=== PATIENT | female | born 1965 | race Caucasian/White ===

== ENCOUNTER 2019-04-03 10:24 | Emergency (ER) | payer OTHER ==
[~2019-04-03] VITALS: Ht 161.3 cm; Wt 74.8 kg
--- NOTE | 2019-04-03 10:38 | NUR ---
AMB TO BED 04, URINE CUP PROVIDED
--- NOTE | 2019-04-03 11:30 | NUR ---
PATIENT PRESENTS TO ED WITH C/O ABDOMINAL PAIN X 5 DAYS. PT STATES THAT THIS PAIN COMES AND GOES, AND DESCRIBES IT 7/10 BURNING PAIN AGGRAVATED BY MOVEMENT AND STANDING. DENIES BOWEL AND URINARY PROBLEMS. PT ALSO COMPLAINS OF NAUSEA, DENIES V/D. PT WITH NON-PRODUCTIVE COUGH AND C/O . LUNGS CLEAR BL; HR EVEN AND REGULAR; VSS; PATIENT POSITIONED FOR COMFORT; HOB ELEVATED; BEDRAILS UP X2; BED DOWN. ER MD MADE AWARE OF PT STATUS. PMH: DM, HTN MEDS: LISINOPRIL, GLIPLIZIDE NKA
[2019-04-03 11:46] LABS: BASOPHILS % (AUTO) 0.5 % (0.0-2.0); EOSINOPHILS % (AUTO) 0.2 % (0.0-4.0); HEMOGLOBIN 12.8 g/dL (12.0-16.0); LYMPHOCYTES # (AUTO) 1.2 K/uL (2.5-16.5); LYMPHOCYTES % (AUTO) 37.7 % (20.5-51.1); MEAN CORPUSCULAR HEMOGLOBIN 31 pg (27-31); MEAN CORPUSCULAR HGB CONC 34 g/dL (33-37); MEAN CORPUSCULAR VOLUME 92.9 fL (80-94); MONOCYTES # (AUTO) 0.5 K/uL (0.8-1.0); MONOCYTES % (AUTO) 17.3 % (1.7-9.3); NEUTROPHILS # (AUTO) 1.4 K/uL (1.8-7.7); NEUTROPHILS % (AUTO) 44.3 % (42.2-75.2); PLATELET COUNT (AUTO) 216 K/uL (140-450); RED BLOOD CELL COUNT(AUTO) 4.09 MIL/uL (4.20-5.40); RED CELL DISTRIBUTION WIDTH 12.3 % (11.6-13.7); WHITE BLOOD COUNT (AUTO) 3.1 K/uL (4.8-10.8)
[2019-04-03 11:47] LABS: APPEARANCE,URINE CLEAR (CLEAR); BILIRUBIN,URINE NEGATIVE (NEGATIVE); BLOOD, URINE TRACE-I (NEGATIVE); COLOR,URINE YELLOW (YELLOW); LEUKOCYTE ESTERASE ,URINE TRACE (NEGATIVE); NITRITE, URINE NEGATIVE (NEGATIVE); PH,URINE 6.5 (5.0-9.0); UGLUCOSE 3+ (NEGATIVE)
[2019-04-03 11:55] LABS: ALBUMIN 2.4 g/dL (3.4-5.0); ANION GAP 9.7 (8-16); CARBON DIOXIDE 32.6 mmol/L (21-32); CREATININE 0.7 mg/dL (0.6-1.3); POTASSIUM 3.3 mmol/L (3.5-5.1); TOTAL BILIRUBIN 0.3 mg/dL (0.0-1.0)
[2019-04-03] MEDS ORDERED: INSULIN REGULAR, HUMAN 100 UNIT/ML VIAL SUBQ ONE (12:05)
[2019-04-03] MEDS ORDERED: NACL 0.9% 1,000 ML IV ONE (12:05)
[2019-04-03] MEDS ORDERED: POTASSIUM CHLORIDE 10 MEQ TABER PO ONE (12:05)
[2019-04-03] MEDS ORDERED: OSELTAMIVIR PHOSPHATE 75 MG CAP PO ONE (12:25)
--- NOTE | 2019-04-03 13:30 | NUR ---
ALL RESULTS BACK AND NOTED BY ERMD AND FOR D/C
[2019-04-03 13:38] LABS: RBC,URINE 0-5 /HPF (0-5); WBC,URINE 0-5 /HPF (0-5)
[2019-04-03 14:15] VITALS: BP 132/80
--- NOTE | 2019-04-03 14:15 | NUR ---
Patient discharged with v/s stable. Written and verbal after care instructions given and explained. Patient alert, oriented and verbalized understanding of instructions. Ambulatory with steady gait. All questions addressed prior to discharge. ID band removed. Patient advised to follow up with PMD. Rx of TAMIFLU 75 MG, IBUPROFEN 600MG given. Patient educated on indication of medication including possible reaction and side effects. Opportunity to ask questions provided and answered.
== END 2019-04-03 14:15 | disposition home or self-care (01) ==
LOC: MED 10:24
DX: J09.X2 Influenza due to identified novel influenza A virus with other respiratory manifestations (principal); E11.65 Type 2 diabetes mellitus with hyperglycemia; E87.6 Hypokalemia; R10.84 Generalized abdominal pain
CPT/HCPCS: 36415; 71046; 80053; 81001; 83690; 85025; 87804; 96360; 96372; 99284; J1815; J7030; 96361

== ENCOUNTER 2019-05-24 12:00 | Inpatient (IN) | payer OTHER ==
[~2019-05-24] VITALS: Ht 154.9 cm; Wt 71.7 kg
[2019-05-24 12:31] VITALS: BP 172/95
[2019-05-24 14:53] LABS: BASOPHILS % (AUTO) 0.2 % (0.0-2.0); EOSINOPHILS % (AUTO) 0.8 % (0.0-4.0); HEMATOCRIT 37.3 % (36-48); HEMOGLOBIN 12.9 g/dL (12.0-16.0); LYMPHOCYTES # (AUTO) 2.6 K/uL (2.5-16.5); LYMPHOCYTES % (AUTO) 43.6 % (20.5-51.1); MEAN CORPUSCULAR HEMOGLOBIN 32 pg (27-31); MEAN CORPUSCULAR HGB CONC 35 g/dL (33-37); MEAN CORPUSCULAR VOLUME 91.7 fL (80-94); MONOCYTES # (AUTO) 0.4 K/uL (0.8-1.0); MONOCYTES % (AUTO) 6.6 % (1.7-9.3); NEUTROPHILS # (AUTO) 2.9 K/uL (1.8-7.7); NEUTROPHILS % (AUTO) 48.8 % (42.2-75.2); PLATELET COUNT (AUTO) 290 K/uL (140-450); RED BLOOD CELL COUNT(AUTO) 4.07 MIL/uL (4.20-5.40)
[2019-05-24 15:02] LABS: BILIRUBIN,URINE NEGATIVE (NEGATIVE); BLOOD, URINE TRACE-L (NEGATIVE); COLOR,URINE YELLOW (YELLOW); LEUKOCYTE ESTERASE ,URINE 1+ (NEGATIVE); NITRITE, URINE NEGATIVE (NEGATIVE); PH,URINE 5.5 (5.0-9.0); UGLUCOSE 3+ (NEGATIVE)
[2019-05-24 15:06] LABS: APPEARANCE,URINE HAZY (CLEAR)
[2019-05-24 15:17] LABS: ANION GAP 11.1 (8-16); CARBON DIOXIDE 30.3 mmol/L (21-32); CREATININE 0.8 mg/dL (0.6-1.3); POTASSIUM 3.4 mmol/L (3.5-5.1)
[2019-05-24 15:18] LABS: RBC,URINE NONE SEEN /HPF (0-5)
[2019-05-24 15:24] LABS: ALBUMIN 3.4 g/dL (3.4-5.0); TOTAL BILIRUBIN 0.2 mg/dL (0.0-1.0)
[2019-05-24] MEDS ORDERED: PIPERACILLIN/TAZOBACTAM 3.375 GM in DEXTROSE 5% 50 ML IV ONE (15:25)
[2019-05-24] MEDS ORDERED: INSULIN REGULAR, HUMAN 100 UNIT/ML VIAL SUBQ ONE (15:25)
[2019-05-24] MEDS ORDERED: NACL 0.9% 1,000 ML IV ONE (15:25)
[2019-05-24] MEDS ORDERED: PIPERACILLIN/TAZOBACTAM 3.375 GM VIAL IV ONE (15:28)
[2019-05-24] MEDS ORDERED: CEPH250C16 PO (16:21)
[2019-05-24] MEDS ORDERED: METF1000 PO (16:21)
[2019-05-24] MEDS ORDERED: GLIP5TER PO (16:21)
[2019-05-24] MEDS ORDERED: LOSA25TA43 PO (16:21)
[2019-05-24] MEDS ORDERED: ACETAMINOPHEN 325 MG TAB PO PRN (16:50)
[2019-05-24] MEDS ORDERED: ONDANSETRON 4 MG/2 ML VIAL IM/IVP PRN (16:50)
[2019-05-24] MEDS ORDERED: HYDROcodone/APAP 5/325 MG 1 TAB TAB PO PRN (16:50)
[2019-05-24] MEDS ORDERED: DEXTROSE 50% 50 ML SYR IVP PRN ×2 (16:50→17:10)
[2019-05-24] MEDS ORDERED: INSULIN LISPRO SLIDING SCALE 100 UNITS/ML VIAL SUBQ PRN (16:50)
[2019-05-24] MEDS ORDERED: DOCUSATE SODIUM 100 MG GELCAP PO PRN (16:50)
[2019-05-24] MEDS ORDERED: ZOLPIDEM 10 MG TAB PO PRN (16:50)
[2019-05-24] MEDS ORDERED: hydrALAZINE 20 MG/ML VIAL IVP ONE (16:50)
[2019-05-24] MEDS ORDERED: hydrALAZINE 20 MG/ML VIAL IVP PRN (16:55)
[2019-05-24] MEDS: NACL 0.9% 1,000 ML IV SCH (17:41)
[2019-05-24] MEDS ORDERED: metFORMIN 500 MG TAB PO SCH (19:00)
[2019-05-24] MEDS ORDERED: VANCOMYCIN PER PHARMACY MC PRN (19:00)
[2019-05-24] MEDS ORDERED: PROPOFOL 200 MG/20 ML VIAL IV ONE (19:06)
[2019-05-24] MEDS ORDERED: LIDOCAINE 2% 100 MG/5 ML SYR IVP ONE (19:06)
[2019-05-24] MEDS ORDERED: SEVOFLURANE 250 ML BTL INH ONE (19:06)
[2019-05-24] MEDS ORDERED: ePHEDrine 50 MG/ML VIAL ONE (19:06)
[2019-05-24] MEDS ORDERED: BUPIVACAINE-MPF/EPI 0.5% 30 ML VIAL INJ ONE (19:10)
[2019-05-24] MEDS ORDERED: VANCOMYCIN 1,500 MG in DEXTROSE 5% 500 ML IV ONE (19:20)
[2019-05-24 19:45] LABS: FREE T4 (FREE THYROXINE) 1.01 ng/dL (0.76-1.46); MAGNESIUM 1.7 mg/dL (1.8-2.4); PHOSPHORUS 3.5 mg/dL (2.5-4.9); THYROID STIMULATING HORMONE 1.21 uIU/mL (0.34-3.74)
[2019-05-24] MEDS ORDERED: ONDANSETRON 4 MG/2 ML VIAL IVP PRN (19:55)
[2019-05-24] MEDS ORDERED: HYDROmorphone 1 MG/ML AMP IVP PRN (19:55)
[2019-05-24 20:00] VITALS: BP 186/87
[2019-05-24 20:12] LABS: PROTHROMBIN TIME 9.6 secs (10.8-13.4)
[2019-05-24] MEDS ORDERED: BLOOD GLUCOSE MONITORING 1 DEV DEV FS SCH (21:00)
[2019-05-24] MEDS ORDERED: PIPERACILLIN/TAZOBACTAM 3.375 GM in DEXTROSE 5% 50 ML IV SCH (21:00)
[2019-05-24] MEDS ORDERED: OSELTAMIVIR PHOSPHATE 75 MG CAP PO SCH (21:00)
[2019-05-24] MEDS ORDERED: VANCOMYCIN 500 MG VIAL ONE (21:31)
[2019-05-24 21:32] LABS: BARBITURATE, URINE NEGATIVE ng/ml (NEG <=200); BENZODIAZEPINE, URINE NEGATIVE ng/mL (NEG <=200); CANNABINOID, URINE NEGATIVE ng/mL (NEG <=50); COCAINE, URINE NEGATIVE ng/mL (NEG <=300); OPIATE, URINE NEGATIVE ng/mL (NEG <=2000); PHENCYCLIDINE SCREEN,URINE NEGATIVE ng/mL (NEG <=25)
[2019-05-24] MEDS ORDERED: VANCOMYCIN 1,000 MG VIAL ONE (21:32)
[2019-05-24] MEDS: BLOOD GLUCOSE MONITORING 1 DEV DEV FS SCH (21:47)
[2019-05-24] MEDS: ATORVASTATIN 20 MG TAB PO SCH (21:49)
[2019-05-25] VITALS: BP 136/67
[2019-05-25] MEDS: PIPERACILLIN/TAZOBACTAM 3.375 GM in DEXTROSE 5% 50 ML IV SCH ×5 (00:46→23:26)
[2019-05-25] MEDS: NACL 0.9% 1,000 ML IV SCH ×2 (03:10→12:52)
[2019-05-25] MEDS: BLOOD GLUCOSE MONITORING 1 DEV DEV FS SCH ×4 (06:01→20:16)
[2019-05-25] MEDS: INSULIN LISPRO SLIDING SCALE 100 UNITS/ML VIAL SUBQ PRN ×2 (06:04→11:51)
[2019-05-25 06:59] LABS: BASOPHILS # (AUTO) 0.1 K/uL (0.00-0.22); BASOPHILS % (AUTO) 0.8 % (0.0-2.0); EOSINOPHILS % (AUTO) 0.7 % (0.0-4.0); HEMATOCRIT 35.2 % (36-48); LYMPHOCYTES # (AUTO) 2.6 K/uL (2.5-16.5); LYMPHOCYTES % (AUTO) 37.5 % (20.5-51.1); MEAN CORPUSCULAR HEMOGLOBIN 31 pg (27-31); MEAN CORPUSCULAR HGB CONC 34 g/dL (33-37); MEAN CORPUSCULAR VOLUME 91.7 fL (80-94); MONOCYTES # (AUTO) 0.3 K/uL (0.8-1.0); MONOCYTES % (AUTO) 4.4 % (1.7-9.3); NEUTROPHILS # (AUTO) 3.9 K/uL (1.8-7.7); NEUTROPHILS % (AUTO) 56.6 % (42.2-75.2); PLATELET COUNT (AUTO) 278 K/uL (140-450); RED BLOOD CELL COUNT(AUTO) 3.84 MIL/uL (4.20-5.40); WHITE BLOOD COUNT (AUTO) 6.9 K/uL (4.8-10.8)
[2019-05-25 07:00] LABS: ANION GAP 12.2 (8-16); CREATININE 0.7 mg/dL (0.6-1.3); POTASSIUM 3.2 mmol/L (3.5-5.1)
[2019-05-25 07:02] LABS: CHOL/HDL RATIO 3.9 (1-4.5)
[2019-05-25 08:00] VITALS: BP 134/62
[2019-05-25] MEDS ORDERED: glipiZIDE ER 5 MG TABER PO SCH (08:00)
[2019-05-25] MEDS: metFORMIN 500 MG TAB PO SCH ×2 (08:34→16:04)
[2019-05-25] MEDS: LOSARTAN 50 MG TAB PO SCH (08:35)
[2019-05-25] MEDS: VANCOMYCIN 750 MG in DEXTROSE 5% 250 ML IV SCH ×2 (08:36→20:03)
[2019-05-25 12:03] LABS: MAGNESIUM 1.4 mg/dL (1.8-2.4); PHOSPHORUS 3.6 mg/dL (2.5-4.9)
[2019-05-25] MEDS ORDERED: POTASSIUM CHLORIDE 40 MEQ, LIDOCAINE MPF 1% 25 MG in NACL 0.9% 250 ML IV SCH (13:00)
[2019-05-25] MEDS ORDERED: INSULIN LANTUS 100 UNITS/ML 10 ML VIAL SUBQ SCH (15:00)
[2019-05-25] MEDS ORDERED: POTASSIUM CHLORIDE 10 MEQ TABER PO SCH (15:44)
[2019-05-25 16:00] VITALS: BP 154/75
[2019-05-25] MEDS ORDERED: MAG SULF 2000 MG/WATER PREMIX 100 ML IV SCH (16:00)
[2019-05-25] MEDS: glipiZIDE 10 MG TAB PO SCH (16:04)
[2019-05-25] MEDS ORDERED: glipiZIDE 10 MG TAB PO SCH (16:30)
[2019-05-25] MEDS: MAG SULF 2000 MG/WATER PREMIX 100 ML IV SCH ×2 (18:03→21:37)
[2019-05-25] MEDS: ATORVASTATIN 20 MG TAB PO SCH (20:16)
[2019-05-26] VITALS: BP 130/66
[2019-05-26] MEDS: PIPERACILLIN/TAZOBACTAM 3.375 GM in DEXTROSE 5% 50 ML IV SCH ×3 (05:00→17:40)
[2019-05-26] MEDS: BLOOD GLUCOSE MONITORING 1 DEV DEV FS SCH ×4 (06:32→20:51)
[2019-05-26] MEDS: INSULIN LISPRO SLIDING SCALE 100 UNITS/ML VIAL SUBQ PRN (06:33)
[2019-05-26 08:00] VITALS: BP 137/71
[2019-05-26 08:30] LABS: BASOPHILS % (AUTO) 0.4 % (0.0-2.0); EOSINOPHILS # (AUTO) 0.1 K/uL (0-0.4); EOSINOPHILS % (AUTO) 1.3 % (0.0-4.0); HEMATOCRIT 36.1 % (36-48); HEMOGLOBIN 12.3 g/dL (12.0-16.0); LYMPHOCYTES # (AUTO) 2.6 K/uL (2.5-16.5); LYMPHOCYTES % (AUTO) 43.2 % (20.5-51.1); MEAN CORPUSCULAR HEMOGLOBIN 32 pg (27-31); MEAN CORPUSCULAR HGB CONC 34 g/dL (33-37); MEAN CORPUSCULAR VOLUME 92.3 fL (80-94); MONOCYTES # (AUTO) 0.3 K/uL (0.8-1.0); MONOCYTES % (AUTO) 5.2 % (1.7-9.3); NEUTROPHILS % (AUTO) 49.9 % (42.2-75.2); PLATELET COUNT (AUTO) 290 K/uL (140-450); RED BLOOD CELL COUNT(AUTO) 3.91 MIL/uL (4.20-5.40); RED CELL DISTRIBUTION WIDTH 13.2 % (11.6-13.7); WHITE BLOOD COUNT (AUTO) 5.9 K/uL (4.8-10.8)
[2019-05-26 08:35] LABS: CREATININE 0.7 mg/dL (0.6-1.3)
[2019-05-26] MEDS: LOSARTAN 50 MG TAB PO SCH (08:50)
[2019-05-26] MEDS: metFORMIN 500 MG TAB PO SCH ×2 (08:50→17:40)
[2019-05-26] MEDS: glipiZIDE 10 MG TAB PO SCH (08:50)
[2019-05-26] MEDS: VANCOMYCIN 1,000 MG in DEXTROSE 5% 250 ML IV SCH ×2 (09:14→23:30)
[2019-05-26] MEDS: NACL 0.9% 1,000 ML IV SCH (13:10)
[2019-05-26 16:00] VITALS: BP 158/73
[2019-05-26] MEDS: ATORVASTATIN 20 MG TAB PO SCH (20:22)
[2019-05-27] VITALS: BP 132/69
[2019-05-27 06:47] LABS: ANION GAP 12.3 (8-16); CARBON DIOXIDE 29.5 mmol/L (21-32); CREATININE 0.7 mg/dL (0.6-1.3); POTASSIUM 3.8 mmol/L (3.5-5.1)
[2019-05-27 06:50] LABS: BASOPHILS % (AUTO) 0.1 % (0.0-2.0); EOSINOPHILS # (AUTO) 0.1 K/uL (0-0.4); EOSINOPHILS % (AUTO) 0.7 % (0.0-4.0); HEMATOCRIT 40.2 % (36-48); HEMOGLOBIN 13.8 g/dL (12.0-16.0); LYMPHOCYTES # (AUTO) 3.4 K/uL (2.5-16.5); LYMPHOCYTES % (AUTO) 46.7 % (20.5-51.1); MEAN CORPUSCULAR HEMOGLOBIN 32 pg (27-31); MEAN CORPUSCULAR HGB CONC 34 g/dL (33-37); MEAN CORPUSCULAR VOLUME 91.8 fL (80-94); MONOCYTES # (AUTO) 0.5 K/uL (0.8-1.0); MONOCYTES % (AUTO) 6.3 % (1.7-9.3); NEUTROPHILS # (AUTO) 3.3 K/uL (1.8-7.7); NEUTROPHILS % (AUTO) 46.2 % (42.2-75.2); PLATELET COUNT (AUTO) 329 K/uL (140-450); RED BLOOD CELL COUNT(AUTO) 4.37 MIL/uL (4.20-5.40); RED CELL DISTRIBUTION WIDTH 13.3 % (11.6-13.7); WHITE BLOOD COUNT (AUTO) 7.2 K/uL (4.8-10.8)
[2019-05-27] MEDS: INSULIN LISPRO SLIDING SCALE 100 UNITS/ML VIAL SUBQ PRN ×4 (07:08→21:56)
[2019-05-27] MEDS: BLOOD GLUCOSE MONITORING 1 DEV DEV FS SCH ×4 (07:08→21:51)
[2019-05-27 08:00] VITALS: BP 155/74
[2019-05-27] MEDS: glipiZIDE 10 MG TAB PO SCH (08:00)
[2019-05-27] MEDS: metFORMIN 500 MG TAB PO SCH ×2 (08:35→16:49)
[2019-05-27] MEDS: LOSARTAN 50 MG TAB PO SCH (08:36)
[2019-05-27] MEDS: VANCOMYCIN 1,000 MG in DEXTROSE 5% 250 ML IV SCH ×2 (08:38→21:03)
[2019-05-27] MEDS: NACL 0.9% 1,000 ML IV SCH (13:10)
[2019-05-27 16:00] VITALS: BP 136/88
[2019-05-27] MEDS: ATORVASTATIN 20 MG TAB PO SCH (21:51)
[2019-05-28] VITALS: BP 123/59
[2019-05-28] MEDS: BLOOD GLUCOSE MONITORING 1 DEV DEV FS SCH ×2 (05:40→11:40)
[2019-05-28] MEDS: INSULIN LISPRO SLIDING SCALE 100 UNITS/ML VIAL SUBQ PRN ×2 (06:17→11:52)
[2019-05-28 08:00] VITALS: BP 144/63
[2019-05-28 08:01] LABS: BASOPHILS # (AUTO) 0.1 K/uL (0.00-0.22); BASOPHILS % (AUTO) 0.8 % (0.0-2.0); EOSINOPHILS # (AUTO) 0.1 K/uL (0-0.4); EOSINOPHILS % (AUTO) 1.2 % (0.0-4.0); HEMATOCRIT 38.9 % (36-48); HEMOGLOBIN 13.3 g/dL (12.0-16.0); LYMPHOCYTES # (AUTO) 3.1 K/uL (2.5-16.5); LYMPHOCYTES % (AUTO) 44.4 % (20.5-51.1); MEAN CORPUSCULAR HEMOGLOBIN 31 pg (27-31); MEAN CORPUSCULAR HGB CONC 34 g/dL (33-37); MEAN CORPUSCULAR VOLUME 91.5 fL (80-94); MONOCYTES # (AUTO) 0.4 K/uL (0.8-1.0); MONOCYTES % (AUTO) 5.9 % (1.7-9.3); NEUTROPHILS # (AUTO) 3.3 K/uL (1.8-7.7); NEUTROPHILS % (AUTO) 47.7 % (42.2-75.2); PLATELET COUNT (AUTO) 332 K/uL (140-450); RED BLOOD CELL COUNT(AUTO) 4.26 MIL/uL (4.20-5.40); RED CELL DISTRIBUTION WIDTH 13.3 % (11.6-13.7); WHITE BLOOD COUNT (AUTO) 6.9 K/uL (4.8-10.8)
[2019-05-28 08:22] LABS: ANION GAP 11.3 (8-16); CARBON DIOXIDE 30.4 mmol/L (21-32); CREATININE 0.7 mg/dL (0.6-1.3); POTASSIUM 3.7 mmol/L (3.5-5.1)
[2019-05-28] MEDS: metFORMIN 500 MG TAB PO SCH (09:00)
[2019-05-28] MEDS: LOSARTAN 50 MG TAB PO SCH (09:01)
[2019-05-28] MEDS: glipiZIDE 10 MG TAB PO SCH (09:01)
[2019-05-28] MEDS: VANCOMYCIN 1,000 MG in DEXTROSE 5% 250 ML IV SCH (09:11)
[2019-05-28] MEDS: NACL 0.9% 1,000 ML IV SCH (13:10)
[2019-05-28] MEDS ORDERED: DYN250 PO (14:53)
[2019-05-28] MEDS ORDERED: LACT-81 PO (14:54)
== END 2019-05-28 17:30 | disposition home or self-care (01) | DRG 571 ==
LOC: MED 12:00 → MTU 16:30
PROVIDERS: ADMIT General Practice; ATTEND General Practice
PROC: 0JB80ZZ Excision of Abdomen Subcutaneous Tissue and Fascia, Open Approach (ICD-10-PCS; principal; 2019-05-24 18:30)
DX: L02.211 Cutaneous abscess of abdominal wall (principal); E11.52 Type 2 diabetes mellitus with diabetic peripheral angiopathy with gangrene; N39.0 Urinary tract infection, site not specified; I96 Gangrene, not elsewhere classified; L03.311 Cellulitis of abdominal wall; I10 Essential (primary) hypertension; E87.6 Hypokalemia; E11.65 Type 2 diabetes mellitus with hyperglycemia; I16.0 Hypertensive urgency; E83.42 Hypomagnesemia; Z79.84 Long term (current) use of oral hypoglycemic drugs; Z79.899 Other long term (current) drug therapy
CPT/HCPCS: 36415; 71045; 80048; 80053; 80202; 80305; 81001; 82150; 82948; 83036; 83605; 83690; 83735; 83880; 84100; 84134; 84439; 84443; 84484; 85025; 85610; 85730; 87040; 87070; 87075; 87081; 87086; 87186; 87205; 88304; 93005; 96365; 96372; 96375; 99285; J0360; J1644; J1815; J2001; J2543; J2704; J3370; J3475; J3480; J3490; J7030; J7060

== ENCOUNTER 2021-07-18 16:05 | Emergency (ER) | payer OTHER ==
[~2021-07-18] VITALS: Ht 160 cm; Wt 79.4 kg
[~2021-07-18 16:05] MED LIST: DYN250 PO; GLIP5TER PO; LACT-81 PO; LOSA25TA43 PO; METF-1061 PO
[2021-07-18 16:11] VITALS: BP 146/69
[2021-07-18] MEDS ORDERED: COROTSOL LEFT EAR (17:13)
[2021-07-18] MEDS ORDERED: AZIT250T11 PO (17:14)
[2021-07-18] MEDS ORDERED: LIDO15SO PO (17:15)
[2021-07-18 17:30] VITALS: BP 146/69
--- NOTE | 2021-07-18 17:30 | NUR ---
COLLECTED NAWAF MORAN, EMT WALKED TO LAB.
--- NOTE | 2021-07-18 17:31 | NUR ---
Patient discharged with v/s stable. Written and verbal after care instructions given FOR STOMATITIS, OTITIS EXTERNA, SORE THROAT, AND FEVER and explained. Patient alert, oriented and verbalized understanding of instructions. Ambulatory with steady gait. All questions addressed prior to discharge. ID band removed. Patient advised to follow up with PMD. Rx of AZITHROMYCIN, CORTISPORIN, AND LIDOCAINE given. Patient educated on indication of medication including possible reaction and side effects. Opportunity to ask questions provided and answered.
== END 2021-07-18 17:31 | disposition home or self-care (01) ==
LOC: MED 16:05
DX: J02.9 Acute pharyngitis, unspecified (principal); Z20.822 Contact with and (suspected) exposure to COVID-19; K12.1 Other forms of stomatitis; H60.502 Unspecified acute noninfective otitis externa, left ear; R50.9 Fever, unspecified; E11.9 Type 2 diabetes mellitus without complications; I10 Essential (primary) hypertension; Z79.899 Other long term (current) drug therapy; Z79.2 Long term (current) use of antibiotics
CPT/HCPCS: 99283

== ENCOUNTER 2021-11-29 11:03 | Inpatient (IN) | payer OTHER ==
[~2021-11-29] VITALS: Ht 160 cm; Wt 81.6 kg
[~2021-11-29 11:03] MED LIST changes: +AZIT250T11 PO; +COROTSOL LEFT EAR; +LIDO15SO PO; -METF-1061 PO; +METF-1274 PO
[2021-11-29 11:10] VITALS: BP 190/96
--- NOTE | 2021-11-29 11:16 | NUR ---
56/F WALKED IN REFERRED BY DR ALMANZAR TO BE ADMITED FOR ULCER TO SECOND DIGIT OF RIGHT FOOT. AFEBRILE. AMBULATORY. PMH: DM, HTN, CHOLESTEROL NKA
--- NOTE | 2021-11-29 11:16 | NUR ---
AMBULATED TO BED 2
[2021-11-29] MEDS ORDERED: PIPERACILLIN/TAZOBACTAM 3.375 GM in DEXTROSE 5% 50 ML IV ONE (12:10)
[2021-11-29] MEDS ORDERED: hydrALAZINE 20 MG/ML VIAL IVP ONE (12:10)
[2021-11-29] MEDS ORDERED: NACL 0.9% 1,000 ML IV ONE ×3 (12:10→14:30)
[2021-11-29] MEDS ORDERED: PIPERACILLIN/TAZOBACTAM 3.375 GM VIAL IV ONE ×2 (12:37→22:08)
--- NOTE | 2021-11-29 12:52 | NUR ---
xr at bedside
[2021-11-29 12:57] LABS: BASOPHILS # (AUTO) 0.1 K/uL (0.00-0.22); BASOPHILS % (AUTO) 0.4 % (0.0-2.0); EOSINOPHILS # (AUTO) 0.1 K/uL (0-0.4); EOSINOPHILS % (AUTO) 0.8 % (0.0-4.0); HEMATOCRIT 35.8 % (36-48); LYMPHOCYTES # (AUTO) 1.7 K/uL (2.5-16.5); LYMPHOCYTES % (AUTO) 11.9 % (20.5-51.1); MEAN CORPUSCULAR HEMOGLOBIN 30 pg (27-31); MEAN CORPUSCULAR HGB CONC 34 g/dL (33-37); MEAN CORPUSCULAR VOLUME 90.8 fL (80-94); MONOCYTES # (AUTO) 0.9 K/uL (0.8-1.0); MONOCYTES % (AUTO) 5.9 % (1.7-9.3); NEUTROPHILS # (AUTO) 11.8 K/uL (1.8-7.7); PLATELET COUNT (AUTO) 224 K/uL (140-450); RED BLOOD CELL COUNT(AUTO) 3.94 MIL/uL (4.20-5.40); RED CELL DISTRIBUTION WIDTH 12.5 % (11.6-13.7); WHITE BLOOD COUNT (AUTO) 14.6 K/uL (4.8-10.8)
[2021-11-29 13:30] LABS: ALBUMIN 2.6 g/dL (3.4-5.0); ANION GAP 10.7 (8-16); CARBON DIOXIDE 29.5 mmol/L (21-32); CREATININE 0.8 mg/dL (0.6-1.3); POTASSIUM 4.2 mmol/L (3.5-5.1); PROTHROMBIN TIME 10.2 secs (10.8-13.4); TOTAL BILIRUBIN 0.5 mg/dL (0.0-1.0)
[2021-11-29 14:13] LABS: APPEARANCE,URINE SL CLOUDY (CLEAR); BILIRUBIN,URINE NEGATIVE (NEGATIVE); BLOOD, URINE 3+ (NEGATIVE); COLOR,URINE AMBER (YELLOW); LEUKOCYTE ESTERASE ,URINE 2+ (NEGATIVE); NITRITE, URINE POSITIVE (NEGATIVE); UGLUCOSE 3+ (NEGATIVE)
--- NOTE | 2021-11-29 14:20 | NUR ---
PT CONTINUES TO BE TACHY. ERPA MADE AWARE. BP 177/88. ERPA AWARE
[2021-11-29 14:40] LABS: RBC,URINE 11-20 (MOD) /HPF (0-5)
[2021-11-29] MEDS ORDERED: MORPHINE SULFATE 2 MG/ML SYR IVP PRN (16:15)
[2021-11-29] MEDS ORDERED: guaiFENesin DM 200/20 MG-10 ML 10 ML UDC PO PRN (16:15)
[2021-11-29] MEDS ORDERED: ONDANSETRON 4 MG/2 ML VIAL IM/IVP PRN (16:15)
[2021-11-29] MEDS ORDERED: KCL 20 MEQ/WATER INJ PREMIX 200 ML IV PRN (16:15)
[2021-11-29] MEDS ORDERED: ZOLPIDEM 5 MG TAB PO PRN (16:15)
[2021-11-29] MEDS ORDERED: DOCUSATE SODIUM 100 MG GELCAP PO PRN (16:15)
[2021-11-29] MEDS ORDERED: HYDROcodone/APAP 7.5/325 MG 1 TAB PO PRN (16:15)
[2021-11-29] MEDS ORDERED: hydrALAZINE 20 MG/ML VIAL IVP PRN (16:15)
[2021-11-29] MEDS ORDERED: ACETAMINOPHEN 325 MG TAB PO PRN (16:15)
[2021-11-29] MEDS ORDERED: VANCOMYCIN PER PHARMACY MC PRN (16:20)
[2021-11-29] MEDS ORDERED: DEXTROSE 50% 50 ML SYR IVP PRN (16:20)
[2021-11-29] MEDS: BLOOD GLUCOSE MONITORING 1 DEV DEV FS SCH ×2 (16:31→22:04)
[2021-11-29 16:54] LABS: PROTHROMBIN TIME 10.4 secs (10.8-13.4)
[2021-11-29] MEDS: INSULIN LISPRO SLIDING SCALE 100 UNITS/ML VIAL SUBQ PRN ×2 (16:54→22:16)
[2021-11-29 16:56] LABS: MAGNESIUM 1.4 mg/dL (1.8-2.4); PHOSPHORUS 2.6 mg/dL (2.5-4.9)
[2021-11-29] MEDS ORDERED: VANCOMYCIN 1,000 MG VIAL ONE (16:57)
[2021-11-29] MEDS: NACL 0.9% 1,000 ML IV SCH ×2 (16:57→22:17)
[2021-11-29] MEDS: VANCOMYCIN 1,000 MG in DEXTROSE 5% 250 ML IV SCH (16:59)
[2021-11-29] MEDS ORDERED: LOSARTAN 25 MG TAB PO SCH (17:00)
--- NOTE | 2021-11-29 20:35 | NUR ---
DR. JAVIER AT BEDSIDE
[2021-11-29 21:50] VITALS: BP 169/83
--- NOTE | 2021-11-29 21:50 | NUR ---
GET THE REPORT FROM ER NURSE, PATIENT IS LYING ON BED, PATIENT IS ALERT ORIENTED X4, CALL LIGHT IS WITHIN THE REACH, WILL CONTINUE TO MONITOR PATIENT.
[2021-11-29] MEDS: PIPERACILLIN/TAZOBACTAM 3.375 GM in DEXTROSE 5% 50 ML IV SCH (22:18)
--- NOTE | 2021-11-29 22:30 | NUR ---
PATIENT IS LYING ON BED, NO ANY COMPLAIN OF SHORTNESS OF BREATH AT THIS TIME, VITAL SIGN IS WITHIN THE NORMAL RANGE, PATIENT BLOOD SUGAR IS 325, GAVE 8 UNIT INSULIN PER DOCTOR ORDER, ALSO PATIENT IS COMPLAINING OF PAIN 6/10 IN HER HEAD, GAVE NORCO 7,5 MG PO PRN PER DOCTOR ORDER, ALL SCHEDULE MEDICATION IS GIVEN PER DOCTOR ORDER, CALL LIGHT IS WITHIN THE REACH, WILL CONTINUE TO MONITOR PATIENT.
[2021-11-30] VITALS: BP 106/49
--- NOTE | 2021-11-30 00:36 | NUR ---
PATIENT IS LYING ON BED, NO ANY COMPLAIN OF PAIN OR SHORTNESS OF BREATH AT THIS TIME, VITAL SIGN IS WITHIN THE NORMAL RANGE, PATIENT IS POSITIVE FOR INFLUENZA A , MASSAGE DOCTOR MEGHNA, WAITING FOR HIS RESPONSE, CALL LIGHT IS WITHIN THE REACH, WILL CONTINUE TO MONITOR PATIENT.
[2021-11-30] MEDS ORDERED: PIPERACILLIN/TAZOBACTAM 3.375 GM VIAL IV ONE (03:49)
[2021-11-30 04:00] VITALS: BP 125/71
[2021-11-30] MEDS: PIPERACILLIN/TAZOBACTAM 3.375 GM in DEXTROSE 5% 50 ML IV SCH ×3 (04:09→20:34)
[2021-11-30] MEDS ORDERED: VANCOMYCIN 1,000 MG VIAL ONE (04:31)
[2021-11-30] MEDS: VANCOMYCIN 1,000 MG in DEXTROSE 5% 250 ML IV SCH ×2 (04:43→16:59)
--- NOTE | 2021-11-30 04:45 | NUR ---
PATIENT IS LYING ON BED, NO ANY COMPLAIN OF PAIN OR SHORTNESS OF BREATH AT THIS TIME, VITAL SIGN IS WITHIN THE NORMAL RANGE, ALL OTHER SCHEDULE MEDICATION IS GIVEN PER DOCTOR ORDER, CALL LIGHT IS WITHIN THE REACH, WILL CONTINUE TO [id number] PATIENT.
[2021-11-30 05:48] LABS: BASOPHILS % (AUTO) 0.2 % (0.0-2.0); EOSINOPHILS % (AUTO) 0.2 % (0.0-4.0); HEMATOCRIT 29.2 % (36-48); HEMOGLOBIN 9.7 g/dL (12.0-16.0); LYMPHOCYTES # (AUTO) 1.7 K/uL (2.5-16.5); LYMPHOCYTES % (AUTO) 13.6 % (20.5-51.1); MEAN CORPUSCULAR HEMOGLOBIN 30 pg (27-31); MEAN CORPUSCULAR HGB CONC 33 g/dL (33-37); MEAN CORPUSCULAR VOLUME 91.5 fL (80-94); MONOCYTES # (AUTO) 0.9 K/uL (0.8-1.0); NEUTROPHILS # (AUTO) 9.9 K/uL (1.8-7.7); PLATELET COUNT (AUTO) 213 K/uL (140-450); RED BLOOD CELL COUNT(AUTO) 3.19 MIL/uL (4.20-5.40); RED CELL DISTRIBUTION WIDTH 12.7 % (11.6-13.7); WHITE BLOOD COUNT (AUTO) 12.5 K/uL (4.8-10.8)
[2021-11-30 05:58] LABS: ANION GAP 9.4 (8-16); CARBON DIOXIDE 27.7 mmol/L (21-32); CREATININE 1.3 mg/dL (0.6-1.3); POTASSIUM 4.1 mmol/L (3.5-5.1)
[2021-11-30] MEDS: BLOOD GLUCOSE MONITORING 1 DEV DEV FS SCH ×4 (06:47→20:34)
[2021-11-30] MEDS: INSULIN LISPRO SLIDING SCALE 100 UNITS/ML VIAL SUBQ PRN ×4 (06:48→20:39)
[2021-11-30] MEDS ORDERED: INSULIN LANTUS 100 UNITS/ML 10 ML VIAL SUBQ SCH (06:50)
--- NOTE | 2021-11-30 07:02 | NUR ---
PATIENT BLOOD SUGAR IS 355, GAVE 10 UNIT INSULIN PER DOCTOR ORDER, CALL LIGHT IS WITHIN THE REACH, WILL CONTINUE TO MONITOR PATIENT.
--- NOTE | 2021-11-30 07:28 | NUR ---
GAVE THE REPORT TO MORNING NURSE ROSI FOR CONTINUOS OF CARE , PATIENT IS STABLE.
[2021-11-30] MEDS ORDERED: MIDAZOLAM 2 MG/2 ML VIAL ONE (07:55)
[2021-11-30] MEDS ORDERED: fentaNYL citrate 0.05 MG/ML VIAL ONE (07:56)
[2021-11-30] MEDS ORDERED: BUPIVACAINE MPF 0.25% 10 ML VIAL INJ ONE ×2 (07:59→08:01)
[2021-11-30] MEDS ORDERED: LIDOCAINE MPF 1% 15 ML ONE (07:59)
[2021-11-30] MEDS ORDERED: PROPOFOL 200 MG/20 ML VIAL IV ONE (08:00)
[2021-11-30] MEDS ORDERED: ESMOLOL 10 ML IV ONE (08:44)
[2021-11-30] MEDS ORDERED: METOPROLOL 5 MG/5 ML VIAL ONE (08:45)
--- NOTE | 2021-11-30 08:50 | NUR ---
WOUND CARE CONSULT NOT DONE. PT. IS WITH OR FOR PROCEDURE. PLEASE CONTINUE POST OP CARE PER DR. JAVIER'S ORDER. POC DISCUSSED WITH PRIMARY RN ROSI.
--- NOTE | 2021-11-30 08:59 | NUR ---
PATIENT HAS BEEN SCREENED AND CATEGORIZED HIGH NUTRITION RISK. PATIENT WILL BE SEEN WITHIN 1-2 DAYS OF ADMISSION. 11/30/21-12/01/21 REVIEWED BY ROBERTO CARLOS RAVI RD
[2021-11-30] MEDS: LOSARTAN 25 MG TAB PO SCH (09:00)
[2021-11-30] MEDS: OSELTAMIVIR PHOSPHATE 75 MG CAP PO SCH ×2 (09:00→20:35)
--- NOTE | 2021-11-30 09:54 | NUR ---
PT ARRIVED BACK ON UNIT AT ABOUT 0940. REPORT RECEIVED AT 0944. PT CONDITION STABLE. PT S/P I&D OF RTOE AND S/P AMPUTATION OF RTOE. RFOOT W DSSG AND HINA BANDAGE / WRAP ON. DSSG CDI.
[2021-11-30] MEDS: NACL 0.9% 1,000 ML IV SCH ×2 (10:13→22:59)
--- NOTE | 2021-11-30 10:54 | NUR ---
P.T. NOTES P.T. EVAL COMPLETED; REFER TO EVAL FOR DETAILS.
[2021-11-30 12:00] VITALS: BP 125/71
--- NOTE | 2021-11-30 15:23 | NUR ---
11/30/21 RD INITIAL ASSESSMENT COMPLETED PLEASE REFER TO NUTRITION ASSESSMENT UNDER CARE ACTIVITY FOR ESTIMATED NUTRITIONAL NEEDS. 1. RECOMMEND [facility] 60 GM DIET AND PROSOURCE BID FOR NUTRITION SUPPORT, TOLERATED 2. MONITOR NUTRITION RELATED LAB VALUES 3. RD TO FOLLOW-UP 7 DAYS, LOW RISK REVIEWED BY ROBERTO CARLOS RAVI RD
[2021-11-30 16:00] VITALS: BP 159/78
[2021-11-30 20:00] VITALS: BP 137/66
--- NOTE | 2021-11-30 20:00 | NUR ---
GET THE REPORT FROM MORNING NURSE ROSI , PATIENT IS LYING ON BED, PATENT IS ALERT ORIENTED X4, ALL FALL PRECAUTION MEASURE ARE IN PLACE, CALL LIGHT IS WITHIN THE REACH, WILL CONTINUE TO MONITOR PATIENT.
[2021-11-30] MEDS: INSULIN LANTUS 100 UNITS/ML 10 ML VIAL SUBQ SCH (20:38)
--- NOTE | 2021-11-30 20:48 | NUR ---
PATIENT IS LYING ON BED, NO ANY COMPLAIN OF PAIN OR SHORTNESS OF BREATH AT THIS TIME, VITAL SIGN IS WITHIN THE NORMAL RANGE, ALL SCHEDULE MEDICATION IS GIVEN PER DOCTOR ORDER, PATIENT BLOOD SUGAR IS 376, GAVE 10 UNIT INSULIN PER DOCTOR ORDER, CALL LIGHT IS WITHIN THE REACH, WILL CONTINUE TO MONITOR PATIENT.
[2021-12-01] VITALS: BP 146/69
[2021-12-01 04:00] VITALS: BP 137/63
[2021-12-01] MEDS: PIPERACILLIN/TAZOBACTAM 3.375 GM in DEXTROSE 5% 50 ML IV SCH ×3 (04:18→21:02)
--- NOTE | 2021-12-01 04:30 | NUR ---
PATIENT IS LYING ON BED, NO ANY COMPLAIN OF PAIN OR SHORTNESS OF BREATH AT THIS TIME, VITAL SIGN IS WITHIN THE NORMAL RANGE, CALL LIGHT IS WITHIN THE REACH, WILL CONTINUE TO MONITOR PATIENT.
--- NOTE | 2021-12-01 04:30 | NUR ---
PATIENT IS LYING ON BED, NO ANY COMPLAIN OF PAIN OR SHORTNESS OF BREATH AT THIS TIME, VITAL SIGN IS WITHIN THE NORMAL RANGE, ALL SCHEDULE MEDICATION IS GIVEN PER DOCTOR ORDER, CALL LIGHT IS WITHIN THE REACH, WILL CONTINUE TO MONITOR PATIENT.
[2021-12-01] MEDS: VANCOMYCIN 1,000 MG in DEXTROSE 5% 250 ML IV SCH ×2 (04:53→16:40)
[2021-12-01] MEDS: BLOOD GLUCOSE MONITORING 1 DEV DEV FS SCH ×4 (06:31→20:48)
[2021-12-01] MEDS: INSULIN LISPRO SLIDING SCALE 100 UNITS/ML VIAL SUBQ PRN ×4 (06:32→20:53)
--- NOTE | 2021-12-01 06:33 | NUR ---
PATIENT BLOOD SUGAR IS 328, GAVE 8 UNIT INSULIN PER DOCTOR ORDER, CALL LIGHT IS WITHIN THE REACH, WILL CONTINUE TO MONITOR PATIENT.
[2021-12-01 06:54] LABS: BASOPHILS % (AUTO) 0.3 % (0.0-2.0); EOSINOPHILS # (AUTO) 0.2 K/uL (0-0.4); EOSINOPHILS % (AUTO) 1.5 % (0.0-4.0); HEMATOCRIT 27.8 % (36-48); HEMOGLOBIN 9.5 g/dL (12.0-16.0); LYMPHOCYTES # (AUTO) 2.1 K/uL (2.5-16.5); LYMPHOCYTES % (AUTO) 16.9 % (20.5-51.1); MEAN CORPUSCULAR HEMOGLOBIN 31 pg (27-31); MEAN CORPUSCULAR HGB CONC 34 g/dL (33-37); MEAN CORPUSCULAR VOLUME 90.8 fL (80-94); MONOCYTES # (AUTO) 0.8 K/uL (0.8-1.0); MONOCYTES % (AUTO) 6.3 % (1.7-9.3); NEUTROPHILS # (AUTO) 9.4 K/uL (1.8-7.7); PLATELET COUNT (AUTO) 240 K/uL (140-450); RED BLOOD CELL COUNT(AUTO) 3.06 MIL/uL (4.20-5.40); RED CELL DISTRIBUTION WIDTH 12.9 % (11.6-13.7); WHITE BLOOD COUNT (AUTO) 12.5 K/uL (4.8-10.8)
--- NOTE | 2021-12-01 07:10 | NUR ---
GAVE THE REPORT TO MORNING NURSE ROSI FOR CONTINUOS OF CARE, PATIENT IS STABLE.
[2021-12-01 07:27] LABS: ANION GAP 14.7 (8-16); CARBON DIOXIDE 25.1 mmol/L (21-32); CREATININE 0.9 mg/dL (0.6-1.3); POTASSIUM 4.8 mmol/L (3.5-5.1)
[2021-12-01] MEDS ORDERED: INSULIN LANTUS 100 UNITS/ML 10 ML VIAL SUBQ SCH (09:00)
[2021-12-01] MEDS: LOSARTAN 25 MG TAB PO SCH (09:01)
[2021-12-01] MEDS: NACL 0.9% 1,000 ML IV SCH ×2 (09:01→14:11)
[2021-12-01] MEDS: OSELTAMIVIR PHOSPHATE 75 MG CAP PO SCH ×2 (09:01→21:03)
[2021-12-01 10:14] VITALS: BP 161/82
[2021-12-01 12:00] VITALS: BP 159/75
[2021-12-01 15:06] LABS: HEPATITIS A ANTIBODY IGM Negative (Negative); HEPATITIS B CORE AB TOTAL Negative (Negative); HEPATITIS B SURFACE ANTIBODY Non Reactive (.); HEPATITIS B SURFACE ANTIGEN Negative (Negative)
[2021-12-01 16:57] VITALS: BP 144/68
[2021-12-01 18:11] LABS: BARBITURATE, URINE NEGATIVE ng/ml (NEG <=200); BENZODIAZEPINE, URINE NEGATIVE ng/mL (NEG <=200)
[2021-12-01 18:12] LABS: CANNABINOID, URINE NEGATIVE ng/mL (NEG <=50); COCAINE, URINE NEGATIVE ng/mL (NEG <=300); OPIATE, URINE POSITIVE ng/mL (NEG <=2000); PHENCYCLIDINE SCREEN,URINE NEGATIVE ng/mL (NEG <=25)
--- NOTE | 2021-12-01 18:18 | NUR ---
0900 Received pt. from SUNIL Spence, pt. in bed, aaox4, call light in reach. Isolation for Influenza A. 1200 Pt. with no distress, Mass Spectrometry Manager did dressing change to right foot, pt. tolerated well 1400 Pt. resting quietly, no distress 1800 Pt. needs met this shift, no acute distress, denies pain, up to [facility] with assist, resting quietly, at this time, call light in reach, isolation in place. Dressing dry , intact to right foot.
--- NOTE | 2021-12-01 19:30 | NUR ---
RECEIVED REPORT FROM DAY SHIFT NURSE LAN FOR CONTINUITY OF CARE. PATIENT IS A&OX4, DIVEHI SPEAKING. PATIENT IS ON ROOM AIR, BREATHING NORMALLY WITH SYMMETRICAL RISE AND FALL OF CHEST. IV IS ON RFA, RUNNING NS 100. PATIENT HAD RIGHT 2ND TOE AMPUTATION ON 11/30/2021. PATIENT'S FOOT IS BANDAGED UP, NEW DRESSING WAS APPLIED TODAY. DRESSING IS DRY AND INTACT. PATIENT IS LYING SEMI FOWLERS IN BED. BED IS IN LOWEST POSITION, WHEELS LOCKED, CALL LIGHT IN PLACE. WILL CONTINUE TO OBSERVE PATIENT.
[2021-12-01 20:00] VITALS: BP 126/58
[2021-12-01] MEDS: INSULIN LANTUS 100 UNITS/ML 10 ML VIAL SUBQ SCH (20:57)
--- NOTE | 2021-12-01 21:20 | NUR ---
BS WAS 365. 10 UNITS OF HUMALOG WAS GIVEN. 2100 MEDICATIONS WERE ADMINISTERED SUCCESSFULLY. CLEANED PATIENT, GAVE PATIENT NEW GOWN AND NEW BEDDING WITH NEW CHUCKS. EMPTIED PATIENT'S COMMODE. PATIENT VOIDED, NO BM. PATIENT IS LYING IN BED IN SEMI FOWLERS POSITION. WILL CONTINUE TO OBSERVE PATIENT.
[2021-12-02] VITALS: BP 143/53
--- NOTE | 2021-12-02 | NUR ---
OBTAINED 0000 VITALS. PATIENT WAS SLEEPING UPON ENTERING ROOM. WOKE PATIENT UP AND CHECKED VITALS. PATIENT WENT TO SLEEP AFTER VITALS WERE OBTAINED. PATIENT WENT BACK TO SLEEP AFTER VITALS WERE OBTAINED. IV WAS RUNNING AT 100. WILL CONTINUE TO OBSERVE PATIENT.
--- NOTE | 2021-12-02 02:30 | NUR ---
LOOKED IN ON PATIENT. PATIENT WAS SLEEPING, LYING ON LEFT SIDE. IV WAS RUNNING NS AT 100. WILL CONTINUE TO OBSERVE PATIENT.
[2021-12-02 04:00] VITALS: BP 160/79
[2021-12-02] MEDS: PIPERACILLIN/TAZOBACTAM 3.375 GM in DEXTROSE 5% 50 ML IV SCH ×3 (04:24→20:56)
[2021-12-02] MEDS: NACL 0.9% 1,000 ML IV SCH ×2 (04:26→14:54)
--- NOTE | 2021-12-02 04:30 | NUR ---
ADMINISTERED 0500 ZOSYN IVPB. PATIENT WAS AWAKE IN ROOM. EMPTIED PATIENT'S COMMODE. PATIENT HAD VOIDED, NO BM. OBTAINED PATIENT'S 0400 VITALS. PATIENT WAS BREATHING NORMALLY WITH SYMMETRICAL RISE AND FALL OF CHEST. WILL CONTINUE TO OBSERVE PATIENT.
[2021-12-02] MEDS: VANCOMYCIN 1,000 MG in DEXTROSE 5% 250 ML IV SCH ×2 (05:05→17:11)
[2021-12-02 05:11] LABS: BASOPHILS % (AUTO) 0.4 % (0.0-2.0); EOSINOPHILS # (AUTO) 0.3 K/uL (0-0.4); EOSINOPHILS % (AUTO) 3.3 % (0.0-4.0); HEMATOCRIT 27.7 % (36-48); HEMOGLOBIN 9.3 g/dL (12.0-16.0); LYMPHOCYTES # (AUTO) 2.2 K/uL (2.5-16.5); LYMPHOCYTES % (AUTO) 25.2 % (20.5-51.1); MEAN CORPUSCULAR HEMOGLOBIN 30 pg (27-31); MEAN CORPUSCULAR HGB CONC 33 g/dL (33-37); MEAN CORPUSCULAR VOLUME 90.9 fL (80-94); MONOCYTES # (AUTO) 0.7 K/uL (0.8-1.0); MONOCYTES % (AUTO) 7.8 % (1.7-9.3); NEUTROPHILS # (AUTO) 5.6 K/uL (1.8-7.7); NEUTROPHILS % (AUTO) 63.3 % (42.2-75.2); PLATELET COUNT (AUTO) 237 K/uL (140-450); RED BLOOD CELL COUNT(AUTO) 3.05 MIL/uL (4.20-5.40); RED CELL DISTRIBUTION WIDTH 12.7 % (11.6-13.7); WHITE BLOOD COUNT (AUTO) 8.9 K/uL (4.8-10.8)
[2021-12-02 05:15] LABS: ANION GAP 12.3 (8-16); CARBON DIOXIDE 27.2 mmol/L (21-32); CREATININE 0.9 mg/dL (0.6-1.3); POTASSIUM 4.5 mmol/L (3.5-5.1)
--- NOTE | 2021-12-02 05:30 | NUR ---
RECEIVED JOSÉ TROPH FROM LAB. VANCO IS 15.4. CALLED PHARMACY. PHARMACIST DAV GAVE OKAY TO CONTINUE GIVING VANCO IVPB. VANCO OKAY TO CONTINUE LONG TROPH IS LESS THAN 20.
[2021-12-02] MEDS: BLOOD GLUCOSE MONITORING 1 DEV DEV FS SCH ×4 (07:13→20:45)
[2021-12-02] MEDS: INSULIN LISPRO SLIDING SCALE 100 UNITS/ML VIAL SUBQ PRN ×4 (07:15→20:55)
--- NOTE | 2021-12-02 07:20 | NUR ---
BS WAS 296, GAVE 6 UNITS.
--- NOTE | 2021-12-02 07:30 | NUR ---
ENDORSED TO DAY SHIFT [facility] FOR CONTINUITY OF CARE. PATIENT IS STABLE.
--- NOTE | 2021-12-02 07:31 | NUR ---
RECEIVED PT FROM PYROTECHNIC ASSEMBLER NURSE FOR CONTINUITY OF CARE. PT AWAKE IN BED. A&O4, ABLE TO COMMUNICATE NEEDS. RESPIRATION EVEN AND UNLABORED ON RA. NO DISTRESS NOTED. ON BODY SHOP WORKER. IV SITE ON RFA, 22G INFUSING NS AT 10ML/HR AND LEFT HAND 22G, SL. PT ON DROPLET PRECAUTION, SIGNS IN PLACE. CALL LIGHT WITHIN REACH. SAFETY PRECAUTIONS IN PLACE. WILL CONTINUE TO MONITOR.
[2021-12-02 08:00] VITALS: BP 149/64
--- NOTE | 2021-12-02 08:53 | NUR ---
ENDORSED PT TO SUNIL MARTINEZ FOR CONTINUITY OF CARE. PT IS STABLE.
[2021-12-02] MEDS ORDERED: INSULIN LANTUS 100 UNITS/ML 10 ML VIAL SUBQ SCH (09:30)
[2021-12-02] MEDS: LOSARTAN 25 MG TAB PO SCH (10:07)
[2021-12-02] MEDS: OSELTAMIVIR PHOSPHATE 75 MG CAP PO SCH ×2 (10:08→20:55)
--- NOTE | 2021-12-02 15:45 | NUR ---
RECEIVED PT FROM SUNIL MARTINEZ FOR CONTINUITY OF CARE. PT IN BED, AWAKE AND ALERT. NO COMPLAINTS OF PAIN. NO DISTRESS NOTED. IV SITE ON RFA, PAINFUL AND NOT FLUSHING WELL, REMOVED IV CATHETER INTACT. IV SITE ON LEFT HAND, INFUSING NS AT 100ML/HR. CALL LIGHT WITHIN REACH. SAFETY PRECAUTIONS IN PLACE. WILL CONTINUE TO MONITOR.
--- NOTE | 2021-12-02 17:21 | NUR ---
BLOOD SUGAR CHECK DONE. SLIDING SCALE INSULIN GIVEN FOR BLOOD SUGAR OF 214. IV VANCO GIVEN BY SUNIL BRITO, NO ADVERSE REACTION NOTED.
--- NOTE | 2021-12-02 18:54 | NUR ---
PT IN BED, AWAKE, RESTING. NO DISTRESS NOTED. NO COMPLAINTS OF PAIN. NO SOB. NO DIFFICULTY BREATHING. CALL LIGHT WITHIN REACH. SAFETY PRECAUTIONS IN PLACE. WILL CONTINUE TO MONITOR.
--- NOTE | 2021-12-02 19:18 | NUR ---
ENDORSED PT TO TRAIN ENGINEER NURSE FOR CONTINUITY OF CARE. ALL NEEDS MET THROUGHOUT SHIFT. PT IS STABLE.
--- NOTE | 2021-12-02 19:30 | NUR ---
RECEIVED REPORT FROM DAY SHIFT NURSE MICHAEL FOR CONTINUITY OF CARE. PATIENT IS A&O X4. PATIENT IS ON ROOM AIR, BREATHING IS NORMAL WITH SYMMETRICAL RISE AND FALL OF CHEST. PATIENT'S IV IS A 22G IN THE LEFT HAND, RUNNING NS AT 100. PATIENT IS LYING IN SEMI FOWLERS POSITION. PATIENT IS SLEEPING. RIGHT FOOT HAS DRESSING, PATIENT HAD RIGHT 2ND TOE AMPUTATION ON 11/30. PATIENT IS NOT TO WALK ON FOOT AND HAS BEDSIDE COMMODE. BED IS IN LOWEST POSITION, WHEELS LOCKED, CALL LIGHT IN PLACE. WILL CONTINUE TO OBSERVE PATIENT.
[2021-12-02 20:00] VITALS: BP 141/63
[2021-12-02] MEDS: INSULIN LANTUS 100 UNITS/ML 10 ML VIAL SUBQ SCH (20:54)
--- NOTE | 2021-12-02 21:10 | NUR ---
ADMINISTERED 2100 MEDICATIONS TO PATIENT. PATIENT TOLERATED WELL. BS WAS 254, ADMINISTERED HUMALOG 6 UNITS FOR COVERAGE. PATIENT'S BREATHING IS NORMAL WITH SYMMETRICAL RISE AND FALL OF CHEST. WILL CONTINUE TO OBSERVE PATIENT.
--- NOTE | 2021-12-02 22:45 | NUR ---
EMPTIED PATIENT'S COMMODE. PATIENT HAD VOIDED, NO BM. PATIENT WAS LYING SUPINE IN BED AWAKE. BREATHING WAS NORMAL WITH SYMMETRICAL RISE AND FALL OF CHEST. WILL CONTINUE TO OBSERVE PATIENT.
--- NOTE | 2021-12-03 00:14 | NUR ---
DRESSING WAS CHANGED ON RIGHT FOOT BY MYSELF AND LIZETTE. DRESSING CHANGE NEEDS TO BE DONE DAILY. PATIENT TOLERATED DRESSING CHANGE WELL AND REPORTED ZERO PAIN. PATIENT WAS INSTRUCTED TO CALL IF PAIN DEVELOPS. PATIENT'S BREATHING WAS NORMAL WITH SYMMETRICAL RISE AND FALL OF CHEST. WILL CONTINUE TO OBSERVE PATIENT. INSTRUCTIONS: RINSE WOUND W/ SALINE/PEROXIDE, APPLY BETADINE SOAKED GAUZE OVER OPEN LESION & SUTURES, STERILE GAUZE, ART HINA BANDAGE. Addendum: 12/03/21 at 0531 by Lizette Christopher RN REMINDS PT IF SHE FEEL ANY UNTOWARDS MANIFESTATION W/ REGARDS TO WOUND OR WOUND DRESSINGS/ BANDAGE , EXAMPLE IF SHE FEELS THE DRESSING TOO TIGHT - SHE HAVE TO INFORM THE NURSE ON DUTY - PT VERBALIZES UNDERSTANDING .
[2021-12-03] MEDS: NACL 0.9% 1,000 ML IV SCH ×2 (00:15→10:25)
--- NOTE | 2021-12-03 01:59 | NUR ---
LOOKED IN ON PATIENT. PATIENT WAS SLEEPING, LYING ON RIGHT SIDE. IV WAS RUNNING NS AT 100. BREATHING WAS NORMAL WITH SYMMETRICAL RISE AND FALL OF CHEST. WILL CONTINUE TO OBSERVE PATIENT.
[2021-12-03 04:00] VITALS: BP 157/103
[2021-12-03] MEDS: PIPERACILLIN/TAZOBACTAM 3.375 GM in DEXTROSE 5% 50 ML IV SCH ×2 (04:22→12:56)
--- NOTE | 2021-12-03 04:27 | NUR ---
ZOSYN IVPB WAS ADMINISTERED. PATIENT WAS AWAKE LYING SUPINE IN BED. BREATHING WAS NORMAL WITH SYMMETRICAL RISE AND FALL OF CHEST. WILL CONTINUE TO OBSERVE PATIENT.
[2021-12-03] MEDS ORDERED: VANCOMYCIN 1,000 MG VIAL ONE (05:17)
--- NOTE | 2021-12-03 05:30 | NUR ---
PER ANISHA HATCH C/O A LITTLE BIT TIGHTNESS ON THE DRESSING .
--- NOTE | 2021-12-03 05:31 | NUR ---
RE OPEN THE WOUND DRESSING , NEURO CHECK - PER PT SHE HAS SENSATION ON THE INVOLVED FEET , PALPATE THE PULSE + BOUNDING PULSE THE FEET IS WARM AND PINK IN COLOR , DENIES PAIN AT THE SITE , BUT PT SAID SHE FEELS MY FINGERS TIP ON HER HEELS AND AROUND THE EFFECTED AREA . NO PROGRESSION OF SWELLING NOTED AT THIS TIME . REMINDS PT IF SHE FEELS DOES NOT RIGHT ON AFFECTED FOOT OR REGARDS THE DRESSING - SHE HAVE TO TELL IT RIGHT AWAY TO THE NURSE ON DUTY , PT.'S VERBALIZES UNDERSTANDING . I LOOSEN THE APPLICATION OF DRESSING AND BANDAGE - PER PT THE DRESSING NOW IS NOT TO LOOSE NOT TO TIGHT - WILL INFORM ANISHA TO INCLUDE TO ENDORSEMENT TO AM NURSE ABOUT FURTHER ASSESSMENT AND MONITORING ABOUT IT . Addendum: 12/03/21 at 0550 by Lizette Christopher RN REMINDS SUNIL LANCASTER TO ENDORSE TO AM NURSE ABOUT CONT. MONITORING OF THE EFFECTED AREA - ANISHA VERBALIZES UNDERSTANDING
[2021-12-03] MEDS: VANCOMYCIN 1,000 MG in DEXTROSE 5% 250 ML IV SCH (05:39)
[2021-12-03 07:05] LABS: BASOPHILS # (AUTO) 0.1 K/uL (0.00-0.22); BASOPHILS % (AUTO) 0.8 % (0.0-2.0); EOSINOPHILS # (AUTO) 0.2 K/uL (0-0.4); EOSINOPHILS % (AUTO) 2.6 % (0.0-4.0); HEMATOCRIT 27.1 % (36-48); HEMOGLOBIN 9.2 g/dL (12.0-16.0); LYMPHOCYTES # (AUTO) 2.2 K/uL (2.5-16.5); LYMPHOCYTES % (AUTO) 27.6 % (20.5-51.1); MEAN CORPUSCULAR HEMOGLOBIN 31 pg (27-31); MEAN CORPUSCULAR HGB CONC 34 g/dL (33-37); MEAN CORPUSCULAR VOLUME 90.8 fL (80-94); MONOCYTES # (AUTO) 0.7 K/uL (0.8-1.0); MONOCYTES % (AUTO) 8.9 % (1.7-9.3); NEUTROPHILS # (AUTO) 4.8 K/uL (1.8-7.7); NEUTROPHILS % (AUTO) 60.1 % (42.2-75.2); PLATELET COUNT (AUTO) 260 K/uL (140-450); RED BLOOD CELL COUNT(AUTO) 2.98 MIL/uL (4.20-5.40); RED CELL DISTRIBUTION WIDTH 12.9 % (11.6-13.7); WHITE BLOOD COUNT (AUTO) 7.9 K/uL (4.8-10.8)
[2021-12-03 07:08] LABS: ANION GAP 12.9 (8-16); CARBON DIOXIDE 25.7 mmol/L (21-32); POTASSIUM 4.6 mmol/L (3.5-5.1)
[2021-12-03] MEDS: BLOOD GLUCOSE MONITORING 1 DEV DEV FS SCH ×2 (07:14→12:17)
[2021-12-03] MEDS: INSULIN LISPRO SLIDING SCALE 100 UNITS/ML VIAL SUBQ PRN ×2 (07:16→12:22)
--- NOTE | 2021-12-03 07:18 | NUR ---
BS WAS 255, ADMINISTERED 6 UNITS OF COVERAGE. BREATHING IS NORMAL WITH SYMMETRICAL RISE AND FALL OF CHEST. PATIENT TOLERATED WELL. WILL ENDORSE CARE OF PATIENT TO DAY SHIFT.
--- NOTE | 2021-12-03 07:47 | NUR ---
RECEIVED ON BED ALERT ABLE TO MAKE NEEDS KNOWN RESPIRATION EVEN AND NOT LABORED NO SHORTNESS OF BREATH. RESIDENT RESPIRATION EVEN AND NOT LABORED NO SHORTNESS OF BREATH. IV SITE ON LEFT HAND NERY 22 RUNNING NS AT 100 CC/HOUR. CALL LIGHT WITH IN EASY REACH. PATIENT SIT AT THE EDGE OF HER BED WAITING FOR BREAKFAST REMINDED NOT PUT WEIGHT ON RIGHT FOOT.
--- NOTE | 2021-12-03 07:52 | NUR ---
ENDORSED TO DAY SHIFT NURSE TOÑO FOR CONTINUITY OF CARE. PATIENT IS STABLE.
[2021-12-03] MEDS: OSELTAMIVIR PHOSPHATE 75 MG CAP PO SCH (09:12)
[2021-12-03] MEDS: LOSARTAN 25 MG TAB PO SCH (09:13)
--- NOTE | 2021-12-03 09:47 | NUR ---
GIVEN HER MEDICATION TOLERATED WELL. PATIENT EATING HER BREAKFAST CALL LIGHT WITH IN EASY REACH. SEEN BY DR. COFFMAN AT SIDE.
--- NOTE | 2021-12-03 11:30 | NUR ---
WOUND CARE NOTE: WOUND ASSESSMENT AND WOUND CARE DONE WITH PRIMARY NURSE DAGMAR ON THIS 56 Y/O PT. AAX4.WOUND CARE TEACHING DONE. SURGICAL WOUND WITH S/P RIGHT 2ND TOE AMPUTATION. PARTIAL SUTURES IN PLACE AT 2ND TOE INTERSPACE AND OPEN WOUND EXTEND TO DORAL RIGHT FOOT PER DR. JAVIER LEFT INCISION PORTABLE OPEN WITH ACTIVE DRAINAGE. DORSAL FOOT OPEN WOUND AREA 4X1X0.5CM WOUND BED IS PINK AND CLEAN, NO ODOR, SMALL AMOUNT SEROUS DRAINAGE WITH PHUC WOUND SKIN SLIGHTLY MACERATION. POC DISCUSSED WITH PT. IN CUBAN WITH PRIMARY NURSE DAGMAR TRANSLATED IN CUBAN, ALL QUESTION ANSWERED AND INSTRUCT PT. TO CONTINUE TO FOLLOW UP WITH DR. JAVIER WHEN DISCHARGE. DRESSING CHANGED PER ORDER, PT. TOLERATE WELL
[2021-12-03] MEDS ORDERED: LEVO-481 PO (12:44)
[2021-12-03] MEDS ORDERED: LACT-2 (12:44)
[2021-12-03] MEDS ORDERED: INSU100V19 SQ (12:48)
[2021-12-03] MEDS ORDERED: GAUZE TP SCH (13:00)
--- NOTE | 2021-12-03 13:49 | NUR ---
DR. JAVIER AT BED SIDE OPEN AND ASSESSED THE WOUND AND GAVE PATIENT INSTRUCTION ON HOW TO TAKE CARE OF IT. PATIENT AWARE ALSO OF DISCHARGE ORDER AND SHE SAID WANT TO GO HOME AT 4 PM.
[2021-12-03 14:03] VITALS: BP 117/80
--- NOTE | 2021-12-03 17:00 | NUR ---
PATIENT ALERT ABLE TO MAKE NEEDS KNOWN RESPIRATION EVEN AND NOT LABORED. GIVEN DISCHARGE INSTRUCTION WITH VERBALIZATION OF UNDERSTANDING. NAME BAND REMOVED AND IV SITE REMOVED WITH CATHETER INTACT. GIVEN WALKER FROM METAL FABRICATOR APPRENTICE PER PT NOT SAFE TO USE CRUTCHES INFORM DR. JAVIER. HOME HEALTH WILL FOLLOW UP PATIENT FOR WOUND CARE.
[2021-12-05] MEDS ORDERED: LEVO-481 PO (11:05)
== END 2021-12-03 17:00 | disposition home health service (06) | DRG 853 ==
LOC: MED 11:03 → MTU 16:10
PROVIDERS: ADMIT Student in an Organized Health Care Education/Training Program; ATTEND Student in an Organized Health Care Education/Training Program
PROC: 0QBN0ZX Excision of Right Metatarsal, Open Approach, Diagnostic (ICD-10-PCS; 2021-11-30)
PROC: 0Y6R0Z0 Detachment at Right 2nd Toe, Complete, Open Approach (ICD-10-PCS; principal; 2021-11-30 07:30)
DX: A41.9 Sepsis, unspecified organism (principal); E43 Unspecified severe protein-calorie malnutrition; N17.0 Acute kidney failure with tubular necrosis; N39.0 Urinary tract infection, site not specified; L03.115 Cellulitis of right lower limb; E87.1 Hypo-osmolality and hyponatremia; E11.52 Type 2 diabetes mellitus with diabetic peripheral angiopathy with gangrene; Z20.822 Contact with and (suspected) exposure to COVID-19; I10 Essential (primary) hypertension; E11.621 Type 2 diabetes mellitus with foot ulcer; E83.51 Hypocalcemia; E83.42 Hypomagnesemia; E78.5 Hyperlipidemia, unspecified; J10.1 Influenza due to other identified influenza virus with other respiratory manifestations; Z68.31 Body mass index [BMI] 31.0-31.9, adult; Z79.4 Long term (current) use of insulin
CPT/HCPCS: 36415; 36600; 71045; 73630; 76830; 80048; 80053; 80202; 80305; 81001; 81025; 82150; 82803; 82948; 83605; 83690; 83735; 84100; 84702; 85025; 85610; 85651; 85730; 86140; 86704; 86706; 86708; 86709; 86803; 86886; 86900; 86901; 87040; 87070; 87075; 87081; 87086; 87186; 87205; 87340; 93005; 96361; 96365; 96375; 97112; 97163-GP; 97530; 99285; J0360; J1815; J2001; J2250; J2270; J2405; J2543; J2704; J3010; J3370; J3490; J7060; Q0092